=== PATIENT | female | born 1965 | race Caucasian/White ===

== ENCOUNTER 2024-10-18 12:04 | Emergency (ER) | payer MEDICARE, OTHER ==
[~2024-10-18] VITALS: Ht 170.2 cm; Wt 77.7 kg
[~2024-10-18 12:04] MED LIST: DEXEDRINE15 MG PO; DEXTROAMPHETAMIN5 M1 PO; DILAUDID4 MG PO; LEVEMIR100 UNIT/1 SQ; METFORMIN HCL1000 M1 PO; METFORMIN HCL1000 MG PO; MIRAPEX1 MG PO; MULTIVITAMINS1 EAC7 PO; NEURONTIN100 MG PO; NORCO 10-325 T1 EACH PO; NORCO 7.5-3251 EACH PO; NOVOLOG FL100 UNIT/1 SQ; OXYCODONE HCL10 MG PO; OXYCONTIN20 MG PO; PRAVASTATIN SOD20 MG PO; TRAMADOL HCL50 MG PO; VICTOZA 3-0.6 MG/0.1 SQ; VITAMIN D2000 UNIT PO; XARELTO10 MG PO; ZYRTEC10 MG PO
[2024-10-18] MEDS ORDERED: DICLOFENAC SODI75 MG PO (12:17)
[2024-10-18] MEDS ORDERED: HYDROXYCHLOROQ200 MG PO (12:17)
[2024-10-18] MEDS ORDERED: OXYMETAZOLINE HCL 30 ML BTL NAS ONE (12:30)
[2024-10-18 12:52] LABS: BASOPHILS 0.3 % (0-2); EOSINOPHILS 0.8 % (0-6); HEMATOCRIT 40.2 % (35.0-50.0); HEMOGLOBIN 13.7 g/dL (12.0-18.0); LYMPHOCYTES 30.7 % (24-44); MCH 30.8 (27-36); MCV 90.6 fl (81-99); MONOCYTES 4.7 % (0-12); NEUTROPHILS 63.5 % (39-80); PLATELET COUNT 222 K/uL (140-440); RBC 4.44 M/ul (4.3-5.7); RDW 12.9 (10.5-15.0)
[2024-10-18 13:06] LABS: INR 1.02 (0.80-1.30); PARTIAL THROMBOPLASTIN TIME 28.6 Sec (22.9-41.3); PROTIME 12.7 Sec (11.2-14.2)
[2024-10-18 13:07] LABS: ALBUMIN 3.8 g/dL (3.4-5.0); ALBUMIN/GLOBULIN RATIO 0.93 (1.1-2.4); ANION GAP 16.1 (7-21); BILIRUBIN, TOTAL 0.4 ng/dL (0.2-1.0); BUN/CREATININE RATIO 36.76 (6.0-28.6); CALCIUM 9.2 mg/dL (8.5-10.1); CREATININE, SERUM 0.68 mg/dL (0.55-1.02); POTASSIUM 4.1 mmol/L (3.5-5.1); PROTEIN, TOTAL 7.9 g/dL (6.4-8.2)
[2024-10-18 13:58] VITALS: BP 154/92
== END 2024-10-18 13:50 | disposition home or self-care (01) ==
LOC: ED 12:04
PROVIDERS: Emergency Medicine
DX: R04.0 Epistaxis (principal); M06.9 Rheumatoid arthritis, unspecified; Z88.6 Allergy status to analgesic agent; Z88.8 Allergy status to other drugs, medicaments and biological substances; Z79.84 Long term (current) use of oral hypoglycemic drugs; Z79.899 Other long term (current) drug therapy
CPT/HCPCS: 30903; 36415; 80053; 85025; 85610; 85730; 99283-25